=== PATIENT | female | born 1995 | race Caucasian/White ===

== ENCOUNTER 2020-10-17 09:32 | Inpatient (IN) | payer OTHER, SELFPAY ==
[2020-10-17] MEDS ORDERED: Ketamine 50 MG/ML (10ML VIAL) ONE (09:49)
[2020-10-17] MEDS ORDERED: Fentanyl 100 MCG/2 ML VIAL ONE ×3 (09:50→19:44)
[2020-10-17] MEDS ORDERED: Ondansetron PF 4 MG/2 ML Vial ONE ×2 (09:50→19:40)
[2020-10-17] MEDS ORDERED: Ketorolac Tromethamine 30 MG/ML VIAL IVP SCH (10:30)
[2020-10-17 11:28] LABS: #Monocytes 0.3 10x3/uL (0.0-1.1); #Neutrophils 5.5 10x3/uL (1.5-8.4); %Basophils 0.2 % (0.0-2.0); %Eosinophils 0.3 % (0.0-6.0); %Lymphocytes 11.1 % (18.0-47.0); %Monocytes 4.3 % (0.0-10.0); %Neutrophils 83.8 % (40.0-75.0); Hemoglobin 11.6 g/dL (12.0-15.5); Mean Corpuscular HGB CONC 32.1 g/dL (32.0-36.0); Mean Corpuscular Hemoglobin 28.5 pg (27.0-33.0); Mean Corpuscular Volume 88.7 fl (81.6-98.3); Mean Platelet Volume 10.4 fl (7.4-10.4); Platelet Count 217 10x3/uL (150-450); RBC Distribution Width 12.8 % (11.5-14.5); Red Blood Cell (RBC) Count 4.07 10x6/uL (3.90-5.03); White Blood Cell (WBC) Count 6.6 10x3/uL (3.5-10.5)
[2020-10-17 11:40] LABS: BHCG - Serum Negative (NEGATIVE); Pregs Control Background? CLEAR/WHITE (CLR/WHITE); Pregs Control Bar Appear? YES (CONTROL BAR)
[2020-10-17 11:42] LABS: PTT 26.1 sec (22.0-33.0); Prothrombin Time 10.9 sec (9.5-12.1)
[2020-10-17 11:46] LABS: ALT (SGPT) 15 U/L (8-55); AST (SGOT) 15 U/L (5-34); Albumin 4.1 g/dL (3.5-5.0); Alkaline Phosphatase 123 U/L (40-110); Anion Gap 13 mmol/L (10-20); BUN (Urea Nitrogen) 8 mg/dL (7.0-18.7); Bilirubin, Total 0.4 mg/dL (0.2-1.2); Calc. Creatinine Clearance 0 mL/min (70-130); Calcium 7.9 mg/dL (7.8-10.44); Carbon Dioxide 21 mmol/L (22-29); Chloride 111 mmol/L (98-107); Globulin 2.6 g/dL (2.4-3.5); Glucose 94 mg/dL (70-105); Potassium 3.7 mmol/L (3.5-5.1); Protein, Total 6.7 g/dL (6.0-8.3); Sodium 141 mmol/L (136-145)
[2020-10-17] MEDS ORDERED: Morphine 4 MG/ML VIAL ONE ×2 (14:53→17:14)
[2020-10-17] MEDS ORDERED: Ketorolac Tromethamine 15 MG/ML VIAL ONE ×2 (16:11→19:40)
[2020-10-17] MEDS ORDERED: Morphine 4 MG/ML VIAL SLOW IVP PRN (16:42)
[2020-10-17] MEDS ORDERED: Ondansetron ODT 4 MG TAB PO PRN (16:43)
[2020-10-17] MEDS ORDERED: Ondansetron PF 4 MG/2 ML Vial IVP PRN (16:43)
[2020-10-17] MEDS ORDERED: D5 1/2 NS w/20 mEq KCL 1,000 ML IV SCH (16:45)
[2020-10-17] MEDS ORDERED: D5 1/2 NS w/20 mEq KCL 1,000 ML ONE (17:15)
[2020-10-17 17:26] LABS: SARS-CoV-2 NAA Rapid Test Not Detected (NotDetected)
[2020-10-17] MEDS ORDERED: CEFAZOLIN 2 GM in Premix Bag 1 BAG IVPB SCH ×2 (17:30→23:59)
[2020-10-17] MEDS ORDERED: traMADol HCl 50 MG TAB PO PRN (18:59)
[2020-10-17] MEDS ORDERED: HYDROcodone/Acetaminophen 5/325 mg Tablet PO PRN (18:59)
[2020-10-17] MEDS ORDERED: Communication Order-Pharmacy FS SCH (19:00)
[2020-10-17] MEDS ORDERED: EPINEPHrine 1 MG/ML AMP ONE (19:03)
[2020-10-17] MEDS ORDERED: Bupivacaine PF 0.5% 30 ML VIAL ONE (19:03)
[2020-10-17] MEDS ORDERED: Midazolam HCl 2 mg/2 ml Vial ONE (19:17)
[2020-10-17] MEDS ORDERED: Scopolamine 1.5 mg/72 hour Patch ONE (19:18)
[2020-10-17] MEDS ORDERED: PROPOFOL 20 ML ONE ×2 (19:26→19:35)
[2020-10-17] MEDS ORDERED: Lidocaine 4% PF 5 ML AMP ONE (19:34)
[2020-10-17] MEDS ORDERED: Dexamethasone 20 MG/5 ML VIAL ONE (19:40)
[2020-10-18] MEDS ORDERED: CEFAZOLIN 2 GM in Premix Bag 1 BAG IVPB SCH (03:00)
[2020-10-18 07:31] VITALS: BP 125/75; TEMP 98.7
== END 2020-10-18 10:50 | disposition home or self-care (01) | DRG 494 ==
LOC: CSHERS 09:32 → CSHERHOLD 16:16 → CSHPP 22:12
PROVIDERS: ADMIT Orthopaedic Surgery; ATTEND Orthopaedic Surgery
PROC: 0QSJ04Z Reposition Right Fibula with Internal Fixation Device, Open Approach (ICD-10-PCS; principal; 2020-10-17)
DX: S82.851A Displaced trimalleolar fracture of right lower leg, initial encounter for closed fracture (principal); Z20.822 Contact with and (suspected) exposure to COVID-19; Z23 Encounter for immunization; F17.210 Nicotine dependence, cigarettes, uncomplicated; W01.0XXA Fall on same level from slipping, tripping and stumbling without subsequent striking against object, initial encounter
CPT/HCPCS: 0240U; 27840; 36415; 76000; 80053; 84703; 85025; 85610; 85730; 96374; 96375; 96376; 99152; C1713; J0171; J0690; J1100; J1885; J2250; J2270; J2405; J2704; J3010; J3480; S0020

== ENCOUNTER 2022-03-30 07:35 | Emergency (ER) | payer SELFPAY ==
[2022-03-30 08:14] LABS: Bilirubin Neg (Negative); Blood, Urine 25 (Negative); Clarity Clear (Clear); Glucose, Urine (Dipstick) Normal (Negative); Ketone, Urine Negative (Negative); Leukocyte Negative (Negative); Nitrite Negative (Negative); Protein, Urine (Dipstick) 15 mg/dl (Neg-Trace); Specific Gravity, Urine 1.025 (1.005-1.030); Urobilinogen Normal mg/dL (Less than 2)
[2022-03-30 08:18] LABS: Pregnancy Test - Urine (BHCG) Negative (Negative); Pregu Control Background? CLEAR/WHITE (CLR/WHITE); Pregu Control Bar Appear? YES (CONTROL BAR); Specific Gravity 1.025 (1.002-1.036)
[2022-03-30 08:36] LABS: Bacteria/HPF 1+ HPF (None Seen); RBC/HPF 0-3 HPF (0-3); WBC/HPF 0-3 HPF (0-3)
[2022-03-30] MEDS ORDERED: Ketorolac Tromethamine 30 MG/ML VIAL ONE (09:04)
== END 2022-03-30 09:22 | disposition home or self-care (01) ==
LOC: CSHERS 07:35
DX: N30.00 Acute cystitis without hematuria (principal); N83.209 Unspecified ovarian cyst, unspecified side; Z87.891 Personal history of nicotine dependence
CPT/HCPCS: 81003; 81015; 81025; 96372; 99284; J1885